=== PATIENT | male | born 1960 ===

== ENCOUNTER 2017-02-17 14:13 | Emergency (ER) | payer OTHER ==
[2017-02-17 14:21] VITALS: BP 174/104; PULSE 78; RESP 100; TEMP 97.8; O2SAT 99
--- NOTE | 2017-02-17 14:45 | ED PDOC ---
Lower Extremity Pain/Injury Chief Complaint (Nursing): Lower Extremity Problem/Injury History Per: Patient History/Exam Limitations: no limitations Onset/Duration Of Symptoms: Days (2 days) Current Symptoms Are (Timing): Still Present Additional Complaint(s): 02/17/2017 Quentin Stoner is a 56 y/o male, whose past medical history includes DM and Hypertension, who presents to the ED complaining of right left leg pain above knee since two days ago. Patient reports a frozen bottle of ice cream on his right thigh causing bruising and pain to his right thigh. He notes taking Ibuprofen causing temporary relief. Patient denies any fever, gait changes, weakness, fever, or other complaints. - Risk Factors DVT Risk Factors: Pos: None Past Medical History Reviewed: Historical Data, Nursing Documentation, Vital Signs Vital Signs: Last Vital Signs Temp 97.8 F 02/17/17 14:17 Pulse 78 02/17/17 14:17 Resp 100 H 02/17/17 14:17 BP 174/104 H 02/17/17 14:17 Pulse Ox 99 02/17/17 14:17 - Medical History PMH: HTN - Family History Family History: States: No Known Family Hx - Home Medications Home Medications: Ambulatory Orders Medication Instructions Recorded Naproxen 1 tab PO Q12 PRN #14 tab 02/17/17 diaZEpam [Valium] 5 mg PO Q6 PRN #6 tab 02/17/17 - Allergies Allergies/Adverse Reactions: Allergies Allergy/AdvReac Type Severity Reaction Status Date / Time No Known Allergies Allergy Verified 02/17/17 14:42 Review of Systems Constitutional: Negative for: Fever Cardiovascular: Negative for: Chest Pain Respiratory: Negative for: Shortness of Breath Gastrointestinal: Negative for: Abdominal Pain Musculoskeletal: Positive for: Leg Pain (right thigh pain after frozen bucket of ice cream fell on top of thigh ) Skin: Positive for: Bruising (right thigh ) Neurological: Negative for: Weakness, Headache, Dizziness Physical Exam - Reviewed Nursing Documentation Reviewed: Yes Vital Signs Reviewed: Yes - Physical Exam Appears: Positive for: Well, Non-toxic, No Acute Distress Skin: Positive for: Normal Color, Warm, DRY Extremity: Positive for: Normal ROM, Swelling (mild swelling on right thigh ), Other (moderate ecchymosis on medial right thigh ). Negative for: Deformity Neurologic/Psych: Positive for: Alert, family medicine chair II-XII, Oriented - ECG O2 Sat by Pulse Oximetry: 99 (room air) Pulse Ox Interpretation: Normal - Progress ED Course And Treament: xry of femur: no acute injury duplex leg: neg for dvt Medical Decision Making Medical Decision Makin02/17/2017 Impression: 56 y/o male with mild swelling on right thigh and moderate ecchymosis on medial right thigh Plan: -- Femur x-ray -- Ultrasound right thigh -- Toradol -- Reassess and disposition Progress Notes: 02/17/2017 15:45 Extremity Ultrasound: Creator : Tsering Arauz MD FINDINGS: COMMON FEMORAL VEIN: Normal flow, compressibility and augmentation response. SUPERFICIAL FEMORAL VEIN: Normal flow, compressibility and augmentation response. POPLITEAL VEIN: Normal flow, compressibility and augmentation response. POSTERIOR TIBIAL VEIN: Normal flow, compressibility and augmentation response. OTHER FINDINGS: None. IMPRESSION: No evidence of deep venous thrombosis in the right lower extremity. Scribe Attestation: Documented by Yoko Valle, acting as a scribe for Austen Perez PA-C Provider Scribe Attestation: All medical record entries made by the Scribe were at my direction and personally dictated by me. I have reviewed the chart and agree that the record accurately reflects my personal performance of the history, physical exam, medical decision making, and the department course for this patient. I have also personally directed, reviewed, and agree with the discharge instructions and disposition. Disposition - Clinical Impression Clinical Impression: Muscle contusion - Disposition Referrals: [facility] [Outside] Disposition: Routine/Home Disposition Time: 15:57 Condition: FAIR Prescriptions: diaZEpam [Valium] 5 mg PO Q6 PRN #6 tab PRN Reason: Muscle Spasm Naproxen 1 tab PO Q12 PRN #14 tab PRN Reason: Pain, Severe (8-10) Instructions: Contusion in Adults (ED) Forms: [facility] ([place]z), [facility] ED School/Work Excuse
--- NOTE | 2017-02-17 15:43 | US ---
PROCEDURE: Right lower extremity venous duplex Doppler. HISTORY: RIGHT THIGH COMPARISON: None available. TECHNIQUE: Common femoral, superficial femoral, popliteal and posterior tibial veins were evaluated. Flow was assessed with color Doppler, compressibility, assessment of phasic flow and augmentation response. FINDINGS: COMMON FEMORAL VEIN: Normal flow, compressibility and augmentation response. SUPERFICIAL FEMORAL VEIN: Normal flow, compressibility and augmentation response. POPLITEAL VEIN: Normal flow, compressibility and augmentation response. POSTERIOR TIBIAL VEIN: Normal flow, compressibility and augmentation response. OTHER FINDINGS: None. IMPRESSION: No evidence of deep venous thrombosis in the right lower extremity.
--- NOTE | 2017-02-17 16:29 | RAD ---
PROCEDURE: Right femur HISTORY: THIGH CONTUSION COMPARISON: None TECHNIQUE: Standard protocol for this study/examination. FINDINGS: No significant/acute osseous, articular or soft tissue abnormalities. IMPRESSION: No significant or acute findings to account for/ related to the clinical presentation.
== END 2017-02-17 16:57 | disposition home or self-care (01) ==
LOC: H.ER 14:13
DX: S70.11XA Contusion of right thigh, initial encounter (principal); W22.8XXA Striking against or struck by other objects, initial encounter; Y93.89 Activity, other specified; Y92.89 Other specified places as the place of occurrence of the external cause; Y99.8 Other external cause status
CPT/HCPCS: 73552; 93971; 96372; 99283; J1885